=== PATIENT | male | born 1995 | race Caucasian/White ===

== ENCOUNTER 2024-02-23 10:14 | Emergency (ER) | payer BC ==
[~2024-02-23] VITALS: Ht 180.3 cm; Wt 99.8 kg
[2024-02-23 10:40] VITALS: BP 131/67; TEMP 98.7; O2SAT 100
[2024-02-23] MEDS ORDERED: IBUP-1957 PO (11:01)
[2024-02-23] MEDS ORDERED: AMOX500T2 PO (11:01)
== END 2024-02-23 11:06 | disposition home or self-care (01) ==
LOC: ER 10:31
DX: K02.9 Dental caries, unspecified (principal); Z79.899 Other long term (current) drug therapy; Z60.2 Problems related to living alone; Z88.1 Allergy status to other antibiotic agents